=== PATIENT | male | born 1995 | race Caucasian/White ===

== ENCOUNTER 2017-10-21 22:00 | Emergency (ER) | payer SELFPAY ==
[2017-10-21 22:07] VITALS: BP 123/59; BMI 21.4
[2017-10-21] MEDS ORDERED: TORADOL 30 MG VIAL IVP ONE (22:51)
[2017-10-21] MEDS ORDERED: NS 1000 ML 1,000 ML IV ONE (22:51)
[2017-10-21] MEDS ORDERED: NS 1000 ML 1,000 ML ONE (23:00)
[2017-10-21] MEDS ORDERED: TORADOL 30 MG VIAL ONE (23:00)
[2017-10-21 23:10] LABS: BASOPHILS % (AUTO) 0.6 % (0.2-1.0); EOSINOPHILS # (AUTO) 0.4 x10^3/uL (0.0-0.2); EOSINOPHILS % (AUTO) 4.8 % (0.9-2.9); HEMATOCRIT 43.9 % (42.0-54.0); HEMOGLOBIN 15.2 g/dL (13.5-18.0); LYMPHOCYTES # (AUTO) 1.1 X10^3/uL (1.3-2.9); LYMPHOCYTES % (AUTO) 13.9 % (21.0-51.0); MEAN CORPUSCULAR HEMOGLOBIN 28.5 pg (27.0-34.0); MEAN CORPUSCULAR HGB CONC 34.8 g/dL (33.0-35.0); MEAN CORPUSCULAR VOLUME 81.9 fL (80.0-100.0); MEAN PLATELET VOLUME 8.2 fL (7.4-11.0); MONOCYTES # (AUTO) 0.7 x10^3/uL (0.3-0.8); MONOCYTES % (AUTO) 8.2 % (0.0-13.0); NEUTROPHILS # (AUTO) 5.9 x10^3/uL (2.2-4.8); NEUTROPHILS % (AUTO) 72.5 % (42.0-75.0); PLATELET COUNT 166 X10^3/uL (150.0-450.0); RED BLOOD COUNT 5.35 X10^6/uL (4.7-6.0); RED CELL DISTRIBUTION WIDTH 13.8 % (11.6-16.5); WHITE BLOOD COUNT 8.1 X10^3/uL (3.6-10.0)
[2017-10-21 23:19] LABS: BLOOD UREA NITROGEN 11 mg/dL (7-18); CALCIUM 8.3 mg/dL (8.5-10.1); CARBON DIOXIDE 29.3 mmol/L (21-32); CHLORIDE 103 mmol/L (98-107); COR NA(FOR HYPERGLY) 139 mmol/L (136-145); CREATININE 1.18 mg/dL (0.70-1.30); SODIUM 139 mmol/L (136-145); eGFR BLACK RACES > 60 (>60); eGFR NON BLACK RACES > 60 (>60)
--- NOTE | 2017-10-21 23:23 | DR.GENAD ---
HPI - PCP Primary Care Physician: NFD - Complaint/Symptoms Chief Complaint Doctors Comments: Patient presents with flu-like symptoms for three days; mom with similar symptoms last week. Chief Complaint:: ACHING FEVER COUGH Self Treatment fo Chief Complaint: JASON SELTZER COLD PLUS - Source History Provided: Patient - Mode of Arrival Mode of Arrival: Ambulatory - Timing Onset of Chief Complaint: 10/21/17 PMH - PMH Past Medical History: No Past Surgical History: No - Family History History of Family Medical Conditions: No - Social History Does patient currently use any type of tobacco product: No Have you used tobacco products in the last 12 months: No Type of Tobacco Use: None Does any household member use tobacco: No Alcohol Use: None Do you use any recreational Drugs:: No Lives With: Family Lives Where: Home - infectious screening In the last 2 months have you had wt loss of >10#?: NO Have you had fever, night sweats or hemotysis?: No Have you traveled outside the country in the last 6 months?: No Isolation: Standard ROS - Review of Systems Eyes: No Symptoms Reported ENTM: No Symptoms Reported Respiratoy: No Symptoms Reported Cardiovascular: No Symptoms Reported Gastrointestinal/Abdominal: No Symptoms Reported Genitourinary: No Symptoms Reported Neurological: No Symptoms Reported Musculoskeletal: No Symptoms Reported Integumentary: No Symptoms Reported Hematologic/Lymphatic: No Symptoms Reported Endocrine: No Symptoms Reported Psychiatric: No Symptoms Reported All Other Systems: Reviewed and Negative PE - Vital Signs Vitals: Temperature 99 F Pulse Rate 96 Respiratory Rate 16 Blood Pressure 123/59 O2 Sat by Pulse Oximetry 95 - General Limitations: No Limitations General Appearance: Alert, In No Apparent Distress - Head Head Exam: Normal Inspection, Atraumatic - Eyes Eye exam: Normal Appearance, PERRL, EOMI - ENT ENT Exam: Normal Exam External Ear Exam: Normal External Inspection TM/Canal Exam: Bilateral Normal Nose Exam: Normal Nose Exam Mouth Exam: Normal Inspection Throat Exam: Normal Inspection - Neck Neck Exam: Normal Inspection - Chest Chest Inspection: Normal Inspection - Respiratory Respiratory Exam: Normal Lung Sounds Bilat Respiratory Exam: Bilateral Clear to Auscultation - Cardiovascular Cardiovascular Exam: Regular Rate, Normal Rhythm - Abdominal Exam Abdominal Exam: Normal Inspection, Normal Bowel Sounds Abdominal Tenderness: negative: RUQ, RLQ, LUQ, LLQ, Epigastrium, Suprapubic, Diffuse, Mild, Moderate, Severe, Other - Extremities Extremities Exam: Normal Inspection, Full ROM - Back Back Exam: Normal Inspection, Full ROM - Neurologic Neurological Exam: Alert, Oriented X3, CN II-XII Intact - Psychiatric Psychiatric Exam: Normal Affect, Depressed - Skin Skin Exam: Warm, Dry, Intact ROR - Labs Reviewed Laboratory Results Reviewed?: Yes (Influenza A) Result Diagrams: 10/21/17 22:55 10/21/17 22:55 Laboratory: WBC 8.1 X10^3/uL (3.6-10.0) 10/21/17 22:55 RBC 5.35 X10^6/uL (4.7-6.0) 10/21/17 22:55 Hgb 15.2 g/dL (13.5-18.0) 10/21/17 22:55 Hct 43.9 % (42.0-54.0) 10/21/17 22:55 MCV 81.9 fL (80.0-100.0) 10/21/17 22:55 MCH 28.5 pg (27.0-34.0) 10/21/17 22:55 MCHC 34.8 g/dL (33.0-35.0) 10/21/17 22:55 RDW 13.8 % (11.6-16.5) 10/21/17 22:55 Plt Count 166 X10^3/uL (150.0-450.0) 10/21/17 22:55 MPV 8.2 fL (7.4-11.0) 10/21/17 22:55 Neut % 72.5 % (42.0-75.0) 10/21/17 22:55 Lymph % 13.9 % (21.0-51.0) L 10/21/17 22:55 [place] % 8.2 % (0.0-13.0) 10/21/17 22:55 Eos % 4.8 % (0.9-2.9) H 10/21/17 22:55 Baso % 0.6 % (0.2-1.0) 10/21/17 22:55 Neut # 5.9 x10^3/uL (2.2-4.8) H 10/21/17 22:55 Lymph # 1.1 X10^3/uL (1.3-2.9) L 10/21/17 22:55 [place] # 0.7 x10^3/uL (0.3-0.8) 10/21/17 22:55 Eos # 0.4 x10^3/uL (0.0-0.2) H 10/21/17 22:55 Baso # 0.0 X10^3/uL (0.0-0.1) 10/21/17 22:55 Absolute Nucleated RBC 0.0 /100WBC 10/21/17 22:55 Sodium 139 mmol/L (136-145) 10/21/17 22:55 Corrected Sodium 139 mmol/L (136-145) 10/21/17 22:55 Potassium 3.7 mmol/L (3.5-5.1) 10/21/17 22:55 Chloride 103 mmol/L (98-107) 10/21/17 22:55 Carbon Dioxide 29.3 mmol/L (21-32) 10/21/17 22:55 BUN 11 mg/dL (7-18) 10/21/17 22:55 Creatinine 1.18 mg/dL (0.70-1.30) 10/21/17 22:55 Est GFR (MDRD) Af Amer > 60 (>60) 10/21/17 22:55 Est GFR (MDRD) Non-Af > 60 (>60) 10/21/17 22:55 Glucose 115 mg/dL (65-99) H 10/21/17 22:55 Calcium 8.3 mg/dL (8.5-10.1) L 10/21/17 22:55 Influenza Type A (PCR) Positive (NEGATIVE) A 10/21/17 22:51 Influenza Type B (PCR) Negative (NEGATIVE) 10/21/17 22:51 - Diagnosis Discharge Problem: Influenza A - Discharge Plan Condition: Stable - Follow ups/Referrals Follow ups/Referrals: NFD,None [Primary Care Provider] - 3 days - Instructions
== END 2017-10-22 00:35 | disposition home or self-care (01) ==
LOC: ER 22:00
DX: J11.1 Influenza due to unidentified influenza virus with other respiratory manifestations (principal)
CPT/HCPCS: 36415; 80048; 85025; 87502; 96365; 96374; 99283; A4222; J1885

== ENCOUNTER 2017-11-27 16:35 | Emergency (ER) | payer SELFPAY ==
[2017-11-27 16:40] VITALS: BP 131/67; BMI 21.7
--- NOTE | 2017-11-27 17:38 | DR.GENAD ---
HPI - PCP Primary Care Physician: none - Complaint/Symptoms Chief Complaint:: "burnt right hand on a radiator cap about an hour ago" - Source History Provided: Patient - Mode of Arrival Mode of Arrival: Ambulatory - Timing Onset of Chief Complaint: 11/27/17 PMH - PMH Past Medical History: No Past Surgical History: No - Family History History of Family Medical Conditions: No - Social History Does patient currently use any type of tobacco product: No Have you used tobacco products in the last 12 months: No Type of Tobacco Use: None Does any household member use tobacco: No Alcohol Use: Occasionally Do you use any recreational Drugs:: Yes (what ever is at the [employer]) Lives With: Family Lives Where: Home - infectious screening In the last 2 months have you had wt loss of >10#?: NO Have you had fever, night sweats or hemotysis?: No Have you traveled outside the country in the last 6 months?: No Isolation: Standard ROS - Review of Systems Eyes: No Symptoms Reported ENTM: No Symptoms Reported Respiratoy: No Symptoms Reported Cardiovascular: No Symptoms Reported Gastrointestinal/Abdominal: No Symptoms Reported Genitourinary: No Symptoms Reported Neurological: No Symptoms Reported Musculoskeletal: Hand (left dorsum with blister formation) Integumentary: Lesions (blister formation of dorsum of left hand) Hematologic/Lymphatic: No Symptoms Reported Endocrine: No Symptoms Reported Psychiatric: No Symptoms Reported All Other Systems: Reviewed and Negative PE - Vital Signs Vitals: Temperature 97.8 F Pulse Rate 90 Respiratory Rate 18 Blood Pressure 131/67 O2 Sat by Pulse Oximetry 100 - General Limitations: No Limitations General Appearance: Alert - Head Head Exam: Normal Inspection, Atraumatic - Eyes Eye exam: Normal Appearance, PERRL, EOMI - ENT ENT Exam: Normal Exam External Ear Exam: Normal External Inspection TM/Canal Exam: Bilateral Normal Nose Exam: Normal Nose Exam Mouth Exam: Normal Inspection Throat Exam: Normal Inspection - Neck Neck Exam: Normal Inspection, Full ROM - Chest Chest Inspection: Normal Inspection - Respiratory Respiratory Exam: Normal Lung Sounds Bilat Respiratory Exam: Bilateral Clear to Auscultation - Cardiovascular Cardiovascular Exam: Regular Rate, Normal Rhythm - Abdominal Exam Abdominal Exam: Normal Inspection, Normal Bowel Sounds Abdominal Tenderness: negative: RUQ, RLQ, LUQ, LLQ, Epigastrium, Suprapubic, Diffuse, Mild, Moderate, Severe, Other - Extremities Extremities Exam: Normal Inspection, Full ROM - Back Back Exam: Normal Inspection, Full ROM - Neurologic Neurological Exam: Alert, Oriented X3, CN II-XII Intact - Psychiatric Psychiatric Exam: Normal Affect, Normal Mood - Skin Skin Exam: Warm, Dry, Other (blister formation of dorsum of right hand) - Diagnosis Discharge Problem: Second degree burn of back of hand Qualifiers: Encounter type: initial encounter Laterality: right Qualified Code(s): T23.261A - Burn of second degree of back of right hand, initial encounter - Discharge Plan Condition: Stable - Follow ups/Referrals Follow ups/Referrals: NFD,None [Primary Care Provider] - 3 days - Instructions
[2017-11-27] MEDS ORDERED: TORADOL 60 MG VIAL ONE (17:39)
[2017-11-27] MEDS ORDERED: TORADOL 60 MG VIAL IM ONE (17:39)
[2017-11-27] MEDS ORDERED: SILVADENE TOP NR (18:00)
== END 2017-11-27 18:05 | disposition home or self-care (01) ==
LOC: ER 16:44
PROC: 2W2EX4Z Dressing of Right Hand using Bandage (ICD-10-PCS; principal; 2017-11-27)
DX: T23.261A Burn of second degree of back of right hand, initial encounter (principal); X19.XXXA Contact with other heat and hot substances, initial encounter
CPT/HCPCS: 99282; J1885